=== PATIENT | male | born 1955 | race Caucasian/White ===

== ENCOUNTER 2023-06-20 11:59 | Emergency (ER) | payer OTHER, SELFPAY ==
[2023-06-20 12:12] VITALS: BP 142/100; PULSE 85; O2SAT 94
--- NOTE | 2023-06-20 12:30 | PC.NURSE ---
pt alert to self and place. pt reports being from [facility] and coming up here to [place] to meet his daughter. pt reports did not want to hang out with him and so he left. pt walked from [place] to [facility]. pt called the police where they found him handing out flyers. [facility] determined they would call EMS and [place] [facility] [place].
[2023-06-20 12:34] VITALS: BP 154/92; PULSE 85; RESP 16; TEMP 36.1; O2SAT 97; BMI 27.4
[2023-06-20 12:54] VITALS: O2SAT 98
--- NOTE | 2023-06-20 14:17 | ED_ITS ---
HPI - General Adult General Chief complaint: General Medical Stated complaint: DEMENTIA, MIRNA WANTS EVAL PER EMS Time Seen by Provider: 06/20/23 14:16 Source: patient Mode of arrival: EMS Limitations: language barrier (Patient speaks Bhutanese but does understand some Romansh, graphics programmer was used) and other (Dementia) History of Present Illness HPI narrative: 68-year-old male who was brought to emergency department by ambulance for evaluation of dementia and wandering. I did speak to the patient's , Sukumar . The patient and his live in [place] and our visit the 's daughter in [place], She states that the patient has dementia and has a tendency to wander away. He is not supposed to leave the house without her because he gets lost. She states that today he insisted on leaving the house and she was unable to stop him. She called the police because she was concerned that he would get lost or possibly injured. The patient was found by the police and then transported to the emergency department by ambulance for evaluation. The patient's states that this is happened at least 10 times. She states that 1 time the patient wandered away in [place] and was gone for 3 days, he ended up in [place]. The patient has no memory of these events. He states that he knew where he was going but cannot tell me where the police found him. The patient was oriented to person, he knew that he was in hospital, he could not tell me the year or the month. Given the potential harm of this patient wandering, the fact that he has been missing in the past for several days and the fact that his cannot keep him at home, felt that the patient a danger to himself therefore I placed him on a Section 12 so that he can be evaluated by the care team. I did order laboratory evaluation on the patient as well. The patient will be placed in the emergency department Behavioral [facility] Unit since he is a flight risk secondary to his dementia. Related Data Allergies Allergy/AdvReac Type Severity Reaction Status Date / Time niacin [NIACIN] Allergy Unknown RASH, ITCHY Unverified 07/26/20 18:44 prednisone [PREDNISONE] Allergy Unknown RASH,ITCHY, Unverified 07/26/20 18:44 SWELLING Review of Systems Review of Systems: Yes Unobtainable due to mental status PMFSH Past Medical History PMFSH Narrative: Past medical history: Dementia. Social history: He lives with his in [place] and they are visiting the 's daughter in [place] Social History Social History Alcohol intake: never Smoked in Last 30 Days: No Use of substances other than those prescribed or required for medical reasons: No Advance Directives: No Physical Exam ED Vital Signs: Vital Signs - 24 hr 06/20/23 12:34 06/20/23 12:54 Temperature 97.0 F Pulse Rate 85 Respiratory Rate 16 Blood Pressure 154/92 H Pulse Oximetry 97 98 Oxygen Delivery Method Room Air Room Air BMI result Body Mass Index 27.4 Vital signs revealed an elevated blood pressure of 154/92 otherwise unremarkable Exam: General: Awake, alert in no distress Head: Normocephalic, atraumatic EENT: PERRL, Lids normal, sclera normal, conjunctiva normal, nose normal , ears normal, throat without erythema or exudates Neck: Supple, no adenopathy, trachea midline and nontender Lung: breath sounds symmetric, no wheezing, rales or rhonchi Chest: symmetric movement, nontender Heart: regular rate and rhythm, normal S1, S2 no murmurs or rubs Abdomen: soft, non-tender, nondistended, normal bowel sounds Back: no vertebral tenderness, no CVAT Extremities: no deformities, moves all extremities symmetrically Skin: no rashes, no lesion, normal color and warmth Neuro: Awake, alert, oriented to person and place. He cannot tell me the date or the year. He cannot tell me where the police picked amount or why the police were concerned and brought him to the emergency department., his speech is nor mal speech, cranial nerves intact, moves all extremities symmetrically Psych: Pleasant, cooperative Medical Decision Making Medical Decision Making [facility] Narrative: 68-year-old male with a history of dementia who has a history of wandering and had 1 event where he was loss for 3 days and traveled from [place] to [place]. The patient and his live in [place] and are visiting the patient's 's daughter in [place]. The patient wandered off and was found by the police and brought to emergency department for evaluation. The patient is oriented to person and place but lacks insight as to why he is here. Given his dementia, it was concerned that he was at risk of injury secondary to his wandering therefore I placed him on a Section 12 so that we can have him evaluated by our care team. I did order laboratory evaluation to include: CBC, CMP, COVID-19, urinalysis, urine drug screen, TSH with free T4 1655: Start physician observation Patient's laboratory evaluation was unremarkable. TSH and free T4 is pending. Patient is medically cleared for evaluation by care team At the end of my shift, patient's care was turned over to my colleague, Dr. Umanzor Differential Diagnosis Differential Diagnoses: The differential diagnosis associated with the presentation includes Differential diagnosis includes was not limited to dementia, electrolyte abnormalities,, anemia, thyroid disease Admission/Observation Consideration of admission/observation: Escalation of care including admission/observation considered Lab Data My independent interpretation patient's laboratory evaluation is as follows: CBC was normal. CMP revealed an elevated bicarb of 30, elevated BUN 17 with normal creatinine. Glucose was elevated 126. Calcium elevated 10.3. Urinalysis and microscopic were unremarkable. Urine tox screen was negative. COVID-19 was negative. 06/20/23 15:29 06/20/23 15:29 Labs: Lab Results 06/20/23 06/20/23 06/20/23 Range/Units 14:20 14:20 15:29 WBC 8.9 (4.8-10.8) X10*3/uL RBC 5.35 (4.60-5.80) X10*6/uL Hgb 15.9 (14.0-18.0) g/dl Hct 48.6 (42.0-52.0) % MCV 90.8 (80.0-98.0) fL MCH 29.7 (27.0-33.0) pg MCHC 32.7 (31.0-36.0) g/dl RDW 12.9 (11.0-16.0) % Plt Count 191 (160-400) X10*3/uL MPV 11.1 (9.4-12.4) fL Immature Gran % (Auto) 0.2 (0.0-0.4) % Neut % (Auto) 49.0 (45-73) % Lymph % (Auto) 39.3 (20-40) % [place] % (Auto) 10.1 (2-11) % Eos % (Auto) 1.2 (0-4) % Baso % (Auto) 0.2 (0-2) % Lymph # (Auto) 3.5 (1.2-4.9) X10*3/uL [place] # (Auto) 0.9 (0.1-1.2) X10*3/uL Eos # (Auto) 0.1 (0.0-0.4) X10*3/uL Baso # (Auto) 0.0 (0.0-0.2) X10*3/uL Abs Immat Gran (auto) 0.02 (0.00-0.03) X10*3/uL Absolute Neuts (auto) 4.4 (2.0-8.3) x10*3/uL Absolute Nucleated RBC 0.000 (0.0-0.012) X10*3/uL Nucleated RBC % (auto) 0.0 (0.0-0.2) /100WBC Sodium (135-145) mmol/L Potassium (3.3-5.1) mmol/L Chloride (96-108) mmol/L Carbon Dioxide (22-29) mmol/L Anion Gap (12-20) BUN (9-16) mg/dL Creatinine (0.5-1.4) mg/dL Estim Creat Clear Calc Estimated GFR Random Glucose (60-115) mg/dL Calcium (8.4-10.2) mg/dL Total Bilirubin (0.0-1.0) mg/dL AST (5-37) U/L ALT (0-40) U/L Alkaline Phosphatase (39-117) U/L Total Protein (6.5-8.0) g/dL Albumin (3.5-5.0) g/dL Urine Color Yellow Urine Appearance Clear Urine pH 5.5 (5.0-9.0) Ur Specific [place] 1.025 (1.005-1.025) Urine Protein Negative (Neg-Trace) mg/dL Urine Glucose (UA) Negative (Negative) mg/dL Urine Ketones Negative (Negative) mg/dL Urine Blood Negative (Negative) Urine Nitrite Negative (Negative) Ur Leukocyte Esterase Trace H (Negative) Urine RBC 0-2 (0-2) /HPF Urine WBC 0-5 (0-5) /HPF Ur Squamous Epith Cells 0-2 (0-2) /HPF Urine Bacteria None Seen (None Seen) Hyaline Casts 0-2 (0-2) /LPF Urine Opiates Screen Not Detected (Not Detect) Urine Fentanyl Screen Not Detected (Not Detect) Ur Barbiturates Screen Not Detected (Not Detect) Ur Phencyclidine Scrn Not Detected (Not Detect) Ur Amphetamines Screen Not Detected (Not Detect) U Benzodiazepines Scrn Not Detected (Not Detect) Urine Cocaine Screen Not Detected (Not Detect) U Marijuana (THC) Screen Not Detected (Not Detect) COVID-19 (HARRIET) (Negative) COVID-19 Clin Com 06/20/23 06/20/23 Range/Units 15:29 15:29 WBC (4.8-10.8) X10*3/uL RBC (4.60-5.80) X10*6/uL Hgb (14.0-18.0) g/dl Hct (42.0-52.0) % MCV (80.0-98.0) fL MCH (27.0-33.0) pg MCHC (31.0-36.0) g/dl RDW (11.0-16.0) % Plt Count (160-400) X10*3/uL MPV (9.4-12.4) fL Immature Gran % (Auto) (0.0-0.4) % Neut % (Auto) (45-73) % Lymph % (Auto) (20-40) % [place] % (Auto) (2-11) % Eos % (Auto) (0-4) % Baso % (Auto) (0-2) % Lymph # (Auto) (1.2-4.9) X10*3/uL [place] # (Auto) (0.1-1.2) X10*3/uL Eos # (Auto) (0.0-0.4) X10*3/uL Baso # (Auto) (0.0-0.2) X10*3/uL Abs Immat Gran (auto) (0.00-0.03) X10*3/uL Absolute Neuts (auto) (2.0-8.3) x10*3/uL Absolute Nucleated RBC (0.0-0.012) X10*3/uL Nucleated RBC % (auto) (0.0-0.2) /100WBC Sodium 143 (135-145) mmol/L Potassium 4.1 (3.3-5.1) mmol/L Chloride 106 (96-108) mmol/L Carbon Dioxide 30 H (22-29) mmol/L Anion Gap 11 L (12-20) BUN 17 H (9-16) mg/dL Creatinine 1.09 (0.5-1.4) mg/dL Estim Creat Clear Calc 61.8 Estimated GFR > 60 Random Glucose 126 H (60-115) mg/dL Calcium 10.3 H (8.4-10.2) mg/dL Total Bilirubin 0.8 (0.0-1.0) mg/dL AST 26 (5-37) U/L ALT 26 (0-40) U/L Alkaline Phosphatase 55 (39-117) U/L Total Protein 7.8 (6.5-8.0) g/dL Albumin 4.1 (3.5-5.0) g/dL Urine Color Urine Appearance Urine pH (5.0-9.0) Ur Specific [place] (1.005-1.025) Urine Protein (Neg-Trace) mg/dL Urine Glucose (UA) (Negative) mg/dL Urine Ketones (Negative) mg/dL Urine Blood (Negative) Urine Nitrite (Negative) Ur Leukocyte Esterase (Negative) Urine RBC (0-2) /HPF Urine WBC (0-5) /HPF Ur Squamous Epith Cells (0-2) /HPF Urine Bacteria (None Seen) Hyaline Casts (0-2) /LPF Urine Opiates Screen (Not Detect) Urine Fentanyl Screen (Not Detect) Ur Barbiturates Screen (Not Detect) Ur Phencyclidine Scrn (Not Detect) Ur Amphetamines Screen (Not Detect) U Benzodiazepines Scrn (Not Detect) Urine Cocaine Screen (Not Detect) U Marijuana (THC) Screen (Not Detect) COVID-19 (HARRIET) Negative (Negative) COVID-19 Clin Com See Note Discharge Plan Discharge Clinical Impression: Dementia, Dementia in conditions classified elsewhere with wandering off Patient Disposition: Still a Patient
[2023-06-20 14:30] LABS: Appearance Urine Clear; Color Urine Yellow; Glucose Urine UA Negative (Negative); Leukocyte Esterase Urine Trace (Negative); Nitrite Urine Negative (Negative); PH 5.5 (5.0-9.0); Specific Gravity - Urine 1.025 (1.005-1.025); UMIC TRIGGER UACC YES; Urine Blood Negative (Negative); Urine Ketones Negative (Negative); Urine Protein Negative (Neg-Trace)
[2023-06-20 14:34] LABS: Bacteria Urine None Seen (None Seen); Hyaline Casts Urine 0-2 /LPF (0-2); RBC Urine 0-2 /HPF (0-2); Squamous Epithelial Cell Urine 0-2 /HPF (0-2); WBC Urine 0-5 /HPF (0-5)
--- NOTE | 2023-06-20 14:58 | PC.NURSE ---
This RN made contact with [employer] requesting that they see if they can contact pts to see if she can pick him up. They stated that they will send an officer over to the house to check
--- NOTE | 2023-06-20 15:16 | PC.NURSE ---
report given to pod nurse.
[2023-06-20 15:33] LABS: MANUAL DIFF FLAG NO
[2023-06-20 15:44] LABS: Basophils Percent Auto 0.2 % (0-2); Eosinophils Absolute Auto 0.1 X10*3/uL (0.0-0.4); Eosinophils Percent Auto 1.2 % (0-4); Hematocrit 48.6 % (42.0-52.0); Hemoglobin 15.9 g/dl (14.0-18.0); Imm Gran Abs Auto 0.02 X10*3/uL (0.00-0.03); Imm Gran Pct Auto 0.2 % (0.0-0.4); Lymphocytes Absolute Auto 3.5 X10*3/uL (1.2-4.9); Lymphocytes Percent Auto 39.3 % (20-40); Mean Corpuscular HGB Conc 32.7 g/dl (31.0-36.0); Mean Corpuscular Hemoglobin 29.7 pg (27.0-33.0); Mean Corpuscular Volume 90.8 fL (80.0-98.0); Mean Platelet Volume 11.1 fL (9.4-12.4); Monocytes Absolute Auto 0.9 X10*3/uL (0.1-1.2); Monocytes Percent Auto 10.1 % (2-11); Neutrophils Absolute Auto 4.4 x10*3/uL (2.0-8.3); Platelet Count 191 X10*3/uL (160-400); Red Blood Count 5.35 X10*6/uL (4.60-5.80); Red Cell Distribution Width 12.9 % (11.0-16.0); White Blood Count 8.9 X10*3/uL (4.8-10.8)
[2023-06-20 15:49] LABS: Amphetamine Screen Urine Not Detected (Not Detect); Barbiturates, Urine Not Detected (Not Detect); Benzodiazepines Screen Urine Not Detected (Not Detect); Cannabinoid Screen Urine Not Detected (Not Detect); Cocaine Screen Urine Not Detected (Not Detect); Fentanyl, urine Not Detected (Not Detect); Opiate Screen Urine Not Detected (Not Detect); Phencyclidine Screen Urine Not Detected (Not Detect)
[2023-06-20 15:59] LABS: Alanine Aminotransferase 26 U/L (0-40); Albumin Level 4.1 g/dL (3.5-5.0); Alkaline Phosphatase 55 U/L (39-117); Anion Gap 11 (12-20); Aspartate Amino Transferase 26 U/L (5-37); Bilirubin Total 0.8 mg/dL (0.0-1.0); Blood Urea Nitrogen 17 mg/dL (9-16); Calcium 10.3 mg/dL (8.4-10.2); Carbon Dioxide 30 mmol/L (22-29); Chloride 106 mmol/L (96-108); Creatinine Clr Calc Pharmacy 61.8; Estimated Glomerular Filt Rate > 60; Glucose Random 126 mg/dL (60-115); Potassium 4.1 mmol/L (3.3-5.1); Sodium 143 mmol/L (135-145); Total Protein 7.8 g/dL (6.5-8.0)
[2023-06-20 16:05] LABS: COVID-19 Test Negative (Negative); IDNOW Serial# BCCEAD1C
[2023-06-20 17:05] VITALS: BP 128/76; PULSE 67; RESP 18; TEMP 36.8; O2SAT 96
[2023-06-20 17:43] LABS: TSH reflex Free T4 0.49 uIU/mL (0.32-4.0)
--- NOTE | 2023-06-20 18:27 | PHA.MEDREC ---
Pharmacy Consult ? Medication Reconciliation Pharmacy has completed the medication reconciliation. Called [facility] to send over med list. Per [facility] fax, patient has no medications in their profile. Called patient's spouse Sukumar ([phone]) twice with no response. Patient's 's mailbox is full, so was unable to leave callback message. Leaving as no known home meds as [facility] and claim history show no meds.
--- NOTE | 2023-06-20 19:46 | PC.NURSE ---
Care team and interp with pt.
--- NOTE | 2023-06-20 19:56 | PC.NURSE ---
Per care team, care management to take over looking for placement with [facility].
--- NOTE | 2023-06-20 20:05 | PC.NURSE ---
Pt requesting his cell phone to call someone in [place]. This RN explained he could not use his personal cell in the pod but a hospital phone could be provided to him if he needed to make a call. Pt cooperative. Pt stated I will make the call tomorrow morning .
--- NOTE | 2023-06-21 02:01 | PC.NURSE ---
Pt ambulated to the bathroom with a steady gait.
--- NOTE | 2023-06-21 03:17 | PC.NURSE ---
Pt out of bed ambulated with steady gait and watching tv in common area. Pt requested and given juice. Plan of care ongoing.
[2023-06-21 03:25] VITALS: BP 148/93; PULSE 68; RESP 17; TEMP 36.6; O2SAT 97
--- NOTE | 2023-06-21 15:14 | MHC.CM.PN ---
CM MET WITH PT AND HIS SPOUSE MARY AT BEDSIDE IN POD. SPOUSE EXPLAINS SHE IS UNABLE TO MANAGE PT AND KEEP HIM FROM WANDERING OFF SHE IS ALSO CARING FOR HER SEVERELY AUTISTIC YOUNG GRANDSON WHO IS ALSO PRESENT IN THE ROOM. PT IS ASKING IN [place] WHEN WE WILL LET HIM GO HOME, SPOUSE VERY TEARFUL. PT/SPOUSE AND GRANDCHILD ARE HERE VISITING THEIR DAUGHTER FROM [facility]. THE PT'S WANDERING AND SOMETIMES AGGRESSIVE BEHAVIORS ARE NOT NEW. PER SPOUSE, THEY ARE NOT SCHEDULED TO FLY HOME TO [facility] UNTIL 07/16. SHE STATES SHE IS UNABLE TO CARE FOR HIM AND KEEP HIM SAFE. PER SPOUSE, PT IS [facility] CONNECT[facility] IN [facility]. AND THEY ASSIST WITH HIS OP MEDICAL CARE. PLAN: MARY CAN BE REACHED AT [phone]. IT MAY BE THAT PT WILL NEED TO BE PLACED IN A SECURE DEMENTIA UNIT FOR LTC. CM WILL CONTINUE TO FOLLOW FOR CHANGING DC NEEDS/PLAN.
--- NOTE | 2023-06-21 19:58 | PC.NURSE ---
assumed care of patient at 1900 pt resting comfortably on stretcher in no apparent distress. will ctm
[2023-06-21 20:33] VITALS: BP 148/92; PULSE 71; RESP 16; TEMP 36.2; O2SAT 99
--- NOTE | 2023-06-22 04:08 | PC.NURSE ---
pt ambulatory to and from bathroom with steady gait in no apparent distress pt offers no current complaints at this time
[2023-06-22 05:50] VITALS: BP 152/87; PULSE 68; RESP 16; TEMP 36.3; O2SAT 99
--- NOTE | 2023-06-22 12:07 | MHC.CM.PN ---
CM CONTACTED PT'S MARY AT 12:02PM [phone], PER MARY HER GOAL IS TO TAKE PT BACK TO [place] W/HER ON 07/16 AND PICK PT UP ON 07/15, MARY REPORTS PT WAS LEAVING THE HOUSE AT NIGHT AND SHE IS UNABLE TO MANAGE. CM WILL CONTACT [facility] TO DETERMINE IF THEY CAN COVER RESPITE FOR PT HERE IN [facility] THROUGH 07/15. CM WILL CONT TO FOLLOW.
--- NOTE | 2023-06-22 13:53 | MHC.CM.PN ---
CM CONTACTED [facility] LIAISON, PER LIAISON PT DOES QUALIFY FOR LTC AND HE CAN RECEIVE LTC AT ANY OR CONTRACTED LOCATION, JOS[facility] MIGUEL ALSO FOUND PT'S HCP ON FILE AND WILL FAX TO CM, REFERRAL TO BE MADE TO ALL CONTRACTED [facility] SNF IN AREA TO DETERMINE WHICH HAVE LOCKED UNIT/BED AVAILABILITY.
--- NOTE | 2023-06-22 14:50 | PM.PSYCN ---
History of Present Illness Date of Service: 06/22/2023 Chief Complaint: DEMENTIA, VNA WANTS EVAL PER EMS Reason for Consult: capacity Requesting physician: Devan Holland Discussed with referring provider: Yes Sources of Information: patient interviewed, chart reviewed and crisis/core team assessment reviewed HPI Narrative: Mr. Maynard is a 68 year-old male with hx of dementia. Pt was brought via EMS by police after pt left his step-daughter's house. Per , pt has hx of dementia and has left the home in the past getting lost. They both live in [place] but came to [place] to visit 's daughter. In the ED, utox is negative. CBC unremarkable. CMP also unremarkable. Pt presents as pleasant. He asks this mortgage underwriter if he can go. He does report that he was brought here by police and that he does ont understand why. He is not oriented to month, or year. He does know this is a Hospital and that he is in [place]. He does report that he lives in [place]. He reports he does not have cognitive impairments and minimizes concern of about him easily getting loss. He denies SI/HI. No signs of psychosis or delusional content. Pt thinks he has been here for 5 days, but he has been here for 2. Per nursing, pt has been sleeping and eating well. No combative behaviors, despite pt asking to be discharged soon. Case Management is working on LTC for respite while assists his daughter's disable son and return back to [place]. Diagnostics Vital Signs (24Hr): Vital Signs - 24 hr 06/21/23 20:33 06/22/23 05:50 Temperature 97.1 F 97.3 F Pulse Rate 71 68 Respiratory Rate 16 16 Blood Pressure 148/92 H 152/87 H Pulse Oximetry 99 99 Oxygen Delivery Method Room Air Room Air BMI result Body Mass Index 27.4 Labs 06/20/23 15:29 06/20/23 15:29 Labs: Laboratory Results - last 48 hr 06/20/23 06/20/23 06/20/23 14:20 15:29 15:29 WBC 8.9 RBC 5.35 Hgb 15.9 Hct 48.6 MCV 90.8 MCH 29.7 MCHC 32.7 RDW 12.9 Plt Count 191 MPV 11.1 Immature Gran % (Auto) 0.2 Neut % (Auto) 49.0 Lymph % (Auto) 39.3 [place] % (Auto) 10.1 Eos % (Auto) 1.2 Baso % (Auto) 0.2 Lymph # (Auto) 3.5 [place] # (Auto) 0.9 Eos # (Auto) 0.1 Baso # (Auto) 0.0 Abs Immat Gran (auto) 0.02 Absolute Neuts (auto) 4.4 Absolute Nucleated RBC 0.000 Nucleated RBC % (auto) 0.0 Sodium 143 Potassium 4.1 Chloride 106 Carbon Dioxide 30 H Anion Gap 11 L BUN 17 H Creatinine 1.09 Estim Creat Clear Calc 61.8 Estimated GFR > 60 Random Glucose 126 H Calcium 10.3 H Total Bilirubin 0.8 AST 26 ALT 26 Alkaline Phosphatase 55 Total Protein 7.8 Albumin 4.1 TSH 0.49 Urine Opiates Screen Not Detected Urine Fentanyl Screen Not Detected Ur Barbiturates Screen Not Detected Ur Phencyclidine Scrn Not Detected Ur Amphetamines Screen Not Detected U Benzodiazepines Scrn Not Detected Urine Cocaine Screen Not Detected U Marijuana (THC) Screen Not Detected COVID-19 (HARRIET) COVID-19 [employer] Com 06/20/23 15:29 WBC RBC Hgb Hct MCV MCH MCHC RDW Plt Count MPV Immature Gran % (Auto) Neut % (Auto) Lymph % (Auto) [place] % (Auto) Eos % (Auto) Baso % (Auto) Lymph # (Auto) [place] # (Auto) Eos # (Auto) Baso # (Auto) Abs Immat Gran (auto) Absolute Neuts (auto) Absolute Nucleated RBC Nucleated RBC % (auto) Sodium Potassium Chloride Carbon Dioxide Anion Gap BUN Creatinine Estim Creat Clear Calc Estimated GFR Random Glucose Calcium Total Bilirubin AST ALT Alkaline Phosphatase Total Protein Albumin TSH Urine Opiates Screen Urine Fentanyl Screen Ur Barbiturates Screen Ur Phencyclidine Scrn Ur Amphetamines Screen U Benzodiazepines Scrn Urine Cocaine Screen U Marijuana (THC) Screen COVID-19 (HARRIET) Negative COVID-19 Clin Com See Note Mental Status Exam Mental Status Exam Narrative: Appearance: wearing hospital gown, fair hygiene, in NAD Behavior: cooperative Psychomotor: no agitation or retardation noted. No tremors. Speech: clear, normal rate/rhythm/volume, spontaneous TP: mostly linear TC: no psychosis or delusions, wanting to leave and go home Mood: good Affect: congruent, non labile SI: denies HI: denies VH/AH: none Delusions: none Insight/judgment: impaired x 2. Memory/cog: alert, not oriented to month, year, date, vaguely to situation. Completed clock draw test pt showed difficulty place hands. Medications Medications Current Medications Pharmacy Consult (Consult Rx Perform Med Rec) 1 each MISCELLANE ONCE PRN PRN Reason: Consult order Allergies Allergies Allergy/AdvReac Type Severity Reaction Status Date / Time niacin [NIACIN] Allergy Unknown RASH, ITCHY Unverified 07/26/20 18:44 prednisone [PREDNISONE] Allergy Unknown RASH,ITCHY, Unverified 07/26/20 18:44 SWELLING Assessment & Plan Assessment & Plan (1) Major neurocognitive disorder due to Alzheimer's disease: Status: Acute Code(s): G30.9 - Alzheimer's disease, unspecified; F02.80 - Dementia in other diseases classified elsewhere, unspecified severity, without behavioral disturbance, psychotic disturbance, mood disturbance, and anxiety Plan Mr. Maynard is a 68 year-old male with hx of dementia- which appears to be mostly Alzheimer's type with orientation and visuo spatial impairments along with inability to recall or retain new informations. Pt does not have insight into his own memory/cognitive impairments and tendency to get lost if he is alone. He walked from [place] to [place] without knowing where he was. Per , he has tendency to wonder and can not be left alone without 24 hrs monitoring. PLAN 1. No need for inpatient ayse psych admission as pt does not present with any combative behaviors or psychosis secondary to dementia 2. Pt does NOT have capacity to make medical decisions. If has HCP form- consider invoking it. 3. Pt may benefit from aricept or exelon to slow down progression of AD-if not on this medication already. Total time managing care of this patient today ____ minutes.
--- NOTE | 2023-06-22 21:39 | PC.NURSE ---
pt assessed, pt denies any pain, wants to go home to [place], cooperative and calm
[2023-06-23 06:06] VITALS: RESP 17
--- NOTE | 2023-06-23 11:52 | PC.NURSE ---
pt axox3, respirations even and unlabored, vss, skin warm and dry color appropriate to ethnicity. pt denies si/hi; pt OOB and ambulating; ate 100% of breakfast. pt requests to go home; case management to bedside with teenage program director. pt redirectable and aware of plan of care. denies questions/concerns; all needs met at this time.
== END 2023-06-23 17:05 | disposition home or self-care (01) ==
PROVIDERS: Emergency Provider Emergency Medicine Emergency Medical Services
DX: R41.0 Disorientation, unspecified (principal); F02.80 Dementia in other diseases classified elsewhere, unspecified severity, without behavioral disturbance, psychotic disturbance, mood disturbance, and anxiety; Z91.83 Wandering in diseases classified elsewhere; Z20.822 Contact with and (suspected) exposure to COVID-19; Z79.899 Other long term (current) drug therapy
CPT/HCPCS: 80053; 80307; 81001; 84443; 85025; 87635; 99285; S9485

== ENCOUNTER → 2023-06-20 13:23 | Outpatient (BNV) | payer OTHER, SELFPAY | PROVIDERS: Emergency Provider Emergency Medicine Emergency Medical Services; Visit Provider Social Worker | DX: G30.9 Alzheimer's disease, unspecified (principal); F02.80 Dementia in other diseases classified elsewhere, unspecified severity, without behavioral disturbance, psychotic disturbance, mood disturbance, and anxiety | CPT/HCPCS: 99284 ==